=== PATIENT | female | born 2000 | race Caucasian/White ===

== ENCOUNTER 2024-05-26 15:02 | Observation (INO) | payer BC ==
[2024-05-26 16:08] VITALS: BP 107/58; PULSE 77; RESP 20
== END 2024-05-26 15:55 | disposition home or self-care (01) ==
LOC: OB 15:02
PROVIDERS: ADMIT Family Medicine; ATTEND Family Medicine
DX: Z34.02 Encounter for supervision of normal first pregnancy, second trimester (principal); Z3A.20 20 weeks gestation of pregnancy
CPT/HCPCS: G0378; G0379

== ENCOUNTER 2024-10-07 03:44 | Inpatient (IN) | payer BC ==
[2024-10-07 12:46] LABS: Absolute Neutrophil Ct (ANC) 7.18 x10^3/uL (1.56-6.13); BASOPHIL % 0.2 % (0.1-1.2); Basophil (Absolute #) 0.02 x10^3/uL (0.01-0.08); Eosinophil % 1.1 % (0.7-5.8); Hematocrit 33.8 % (34.1-44.9); Hemoglobin 11.8 g/dL (11.2-15.7); IMMATURE GRAN # 0.07 x10^3u/L (0.001-0.031); IMMATURE GRAN % 0.7 % (0.001-0.429); Lymphocyte (Absolute #) 1.49 x10^3/uL (1.18-3.74); Lymphocytes % 15.9 % (19.3-51.7); Mean Cell Volume 95.5 fL (79.4-94.8); Mean Corpuscular Hemoglobin 33.3 pg (25.6-32.2); Mean Corpuscular Hgb Concent. 34.9 g/dL (32.2-35.5); Mean Platelet Volume 10.3 fL (9.4-12.3); Monocyte (Absolute #) 0.53 x10^3/uL (0.24-0.86); Monocytes % 5.6 % (4.7-12.5); Neutrophil % 76.5 % (34.0-71.1); Platelet Count 235 x10^3/uL (182-369); Red Blood Count 3.54 x10^6/uL (3.93-5.22); Red Cell Distribution Width 12.1 % (11.7-14.4); White Blood Count 9.4 x10^3/uL (3.98-10.04)
[2024-10-07 13:28] LABS: Amphetamine,Urine NEGATIVE (NEGATIVE); Barbiturate,Urine NEGATIVE (NEGATIVE); Benzodiazepine,Urine NEGATIVE (NEGATIVE); Cocaine,Urine NEGATIVE (NEGATIVE); Methadone,Urine NEGATIVE (NEGATIVE); Opiate,Urine NEGATIVE (NEGATIVE); PCP,Urine NEGATIVE (NEGATIVE); THC,Urine NEGATIVE (NEGATIVE)
[2024-10-07 13:33] LABS: ABO TYPING A; Antibody Screen NEGATIVE (NEGATIVE); RH TYPING POSITIVE
[2024-10-07] MEDS ORDERED: Ephedrine Sulfate 50 MG/ML IV PRN (20:51)
[2024-10-07] MEDS ORDERED: BRETHINE 1 MG/ML SQ PRN (20:53)
[2024-10-07] MEDS ORDERED: PITOCIN 30 UNITS/ LR 500 ML 30 UNITS/500 ML PLAST..BAG IV SCH (21:00)
[2024-10-07] MEDS ORDERED: STADOL 2 MG IV PRN (21:51)
[2024-10-07] MEDS: Lactated Ringers 1,000 ML IV ONE (22:21)
[2024-10-07] MEDS: Lactated Ringers 1,000 ML IV SCH (22:23)
[2024-10-07] MEDS ORDERED: FENTANYL 2 MCG-BUPIV 0.125%-NS 250 ML Epidur 250 ML EPIDURAL ONE (22:44)
[2024-10-07] MEDS: FENTANYL 2 MCG-BUPIV 0.125%-NS 250 ML Epidur 250 ML EPIDURAL SCH (22:59)
[2024-10-08 00:25] LABS: Appearance Clear (Clear); Bacteria None Seen /HPF (None Seen); Bilirubin Negative (Negative); Blood Small (Negative); Epithelial Cells None Seen /HPF (None Seen); Glucose, Urine Negative (Negative); Hyaline Casts NONE SEEN /LPF (0-2); Ketones Negative (Negative); Leukocyte Esterase Negative (Negative); Nitrite Negative (Negative); Ph 7.5 (4.6-8.0); Protein,Urine Dip Negative (Negative); Specific Gravity <=1.005 (1.005-1.030); Urobilinogen 0.2 mg/dL (0.2); WBC 0-2 /HPF (0-5)
[2024-10-08] MEDS: PITOCIN 30 UNITS/ LR 500 ML 30 UNITS/500 ML PLAST..BAG IV SCH (04:06)
[2024-10-08] MEDS ORDERED: XYLOCAINE 1% HCL 20 ML MDV IJ PRN (05:00)
[2024-10-08] MEDS ORDERED: Mylicon 80MG PO PRN (05:21)
[2024-10-08] MEDS: LANSINOH 40 GM TOP PRN (06:06)
[2024-10-08] MEDS ORDERED: TUCKS TP ONE (06:06)
[2024-10-08] MEDS: Dermoplast Spray TP PRN (06:07)
[2024-10-08] MEDS: TUCKS TP PRN (06:11)
[2024-10-08] MEDS: MOTRIN 400 MG PO PRN (06:34)
[2024-10-08] MEDS: FERREX 150 PO SCH (11:21)
[2024-10-08] MEDS: Docusate Sodium 100 MG PO SCH (11:21)
[2024-10-08] MEDS: NON-FORMULARY ITEM PO ONE (12:42)
[2024-10-08 16:26] VITALS: RESP 18
[2024-10-08] MEDS: CORTISONE 1% CREAM TP PRN (18:08)
[2024-10-08] MEDS: TYLENOL EXTRA STRENGTH 500 MG PO PRN (18:09)
[2024-10-08 20:20] VITALS: O2SAT 98
[2024-10-09 04:23] LABS: Absolute Neutrophil Ct (ANC) 9.37 x10^3/uL (1.56-6.13); BASOPHIL % 0.3 % (0.1-1.2); Basophil (Absolute #) 0.04 x10^3/uL (0.01-0.08); Eosinophil % 1.7 % (0.7-5.8); Eosinophil (Absolute #) 0.21 x10^3/uL (0.04-0.36); Hematocrit 30.9 % (34.1-44.9); Hemoglobin 10.9 g/dL (11.2-15.7); IMMATURE GRAN # 0.07 x10^3u/L (0.001-0.031); IMMATURE GRAN % 0.6 % (0.001-0.429); Lymphocyte (Absolute #) 1.89 x10^3/uL (1.18-3.74); Lymphocytes % 15.5 % (19.3-51.7); Mean Cell Volume 97.2 fL (79.4-94.8); Mean Corpuscular Hemoglobin 34.3 pg (25.6-32.2); Mean Corpuscular Hgb Concent. 35.3 g/dL (32.2-35.5); Mean Platelet Volume 10.2 fL (9.4-12.3); Monocyte (Absolute #) 0.58 x10^3/uL (0.24-0.86); Monocytes % 4.8 % (4.7-12.5); Neutrophil % 77.1 % (34.0-71.1); Platelet Count 215 x10^3/uL (182-369); Red Blood Count 3.18 x10^6/uL (3.93-5.22); Red Cell Distribution Width 12.5 % (11.7-14.4); White Blood Count 12.2 x10^3/uL (3.98-10.04)
[2024-10-09 10:07] LABS: RPR Non Reactive (Non Reactive)
[2024-10-09] MEDS: M-M-R II Vaccine With Diluent SQ ONE (10:16)
--- NOTE | 2024-10-09 10:54 | PCM.NOTE ---
Date and Time: 10/09/24 1053 Subjective Assessment: ppd 1 sp pt resting in bed and doing well able to ambulate and tolerate diet vss afebrile abd; soft uterus; firm lochia; mild hgb; 10 a/p sp ppd 1 dc home tomorrow should fuin office in 3 wks Objective Data Vital Signs: Vital Signs - 24 hr Temp Pulse Resp BP Pulse Ox 10/09/24 08:00 97.5 F 63 18 107/50 10/09/24 02:00 97.5 F 68 18 93/62 98 10/08/24 20:18 97.5 F 68 18 111/59 98 10/08/24 20:00 97.5 F 68 18 111/59 98 10/08/24 15:15 97.9 F 77 18 103/58 97 Pain Assessment - Last Documented Pain Intensity [Lower Anterior 2 ] Pain Intensity 5 Pain Scale Used 0-10 Pain Scale Intake and Output: Intake & Output 10/06/24 10/07/24 10/08/24 10/09/24 10:59 11:59 11:59 11:59 Intake Total 5850 2000 Output Total 1200 Balance 4650 1999 Weight 58.967 kg Lab Results: Lab Results-Last 24 Hours 10/07/24 10/09/24 Range/Units 12:37 04:20 WBC 12.2 H (3.98-10.04) x10^3/uL RBC 3.18 L (3.93-5.22) x10^6/uL Hgb 10.9 L (11.2-15.7) g/dL Hct 30.9 L (34.1-44.9) % MCV 97.2 H (79.4-94.8) fL MCH 34.3 H (25.6-32.2) pg MCHC 35.3 (32.2-35.5) g/dL RDW 12.5 (11.7-14.4) % Plt Count 215 (182-369) x10^3/uL MPV 10.2 (9.4-12.3) fL Gran % 77.1 H (34.0-71.1) % Immature Gran % (Auto) 0.6 H (0.001-0.429) % Nucleat RBC Rel Count 0.0 (0.00-0.2) % Eos # (Auto) 0.21 (0.04-0.36) x10^3/uL Immature Gran # (Auto) 0.07 H (0.001-0.031) x10^3u/L Absolute Lymphs (auto) 1.89 (1.18-3.74) x10^3/uL Absolute Monos (auto) 0.58 (0.24-0.86) x10^3/uL Absolute Nucleated RBC 0.00 (0.00-0.012) x10^3u/L Lymphocytes % 15.5 L (19.3-51.7) % Monocytes % 4.8 (4.7-12.5) % Eosinophils % 1.7 (0.7-5.8) % Basophils % 0.3 (0.1-1.2) % Absolute Granulocytes 9.37 H (1.56-6.13) x10^3/uL Basophils # 0.04 (0.01-0.08) x10^3/uL RPR Non Reactive (Non Reactive) Assessment/Plan (1) Vaginal delivery Current Visit: Yes Status: Acute Code(s): O80 - ENCOUNTER FOR FULL-TERM UNCOMPLICATED DELIVERY
--- NOTE | 2024-10-09 10:57 | PCM.DS ---
Discharge Summary Date of Admission: 10/07/24 21:25 Admitting Physician: TITO BURT DO Consults: Consults on Case 10/07/24 20:51 Notify Anesthesia Provider PRN 10/08/24 05:21 Notify Physician ROUTINE Primary Care Provider: JUAN LORENZ Allergies Allergies No Known Drug Allergies Allergy (Unverified 09/12/24 17:00) Hospital Summary - Hospital Course Hospital Course: pt admitted for induction at 39 2/7 wks gestation on october 07 with cytotec and was given 2 doses of cytotec before she had srom and was subsequently placed on pitocin and delivered live baby boy without complication on october 08 at 0403. pt did have a midline tear 2nd degree repaired with 2-0 chromic suture and hemostasis obtained. during period did very well with stable hgb at 10 and at this time stable for discharge. all questions answered to her satisfaction and was advised to fu in office in 3 wks. - Vitals & Intake/Output Vital Signs: Vital Signs Temperature 97.5 F 10/09/24 08:00 Pulse Rate 63 10/09/24 08:00 Respiratory Rate 18 10/09/24 08:00 Blood Pressure 107/50 10/09/24 08:00 O2 Sat by Pulse Oximetry 98 10/09/24 02:00 Intake & Output: Intake & Output 10/06/24 10/07/24 10/08/24 10/09/24 10:59 11:59 11:59 11:59 Intake Total 5850 2000 Output Total 1200 Balance 4650 2000 Weight 58.967 kg - Lab Result Diagrams: 10/09/24 04:20 Lab Results-Last 24 Hrs: Lab Results-Last 24 Hours 10/07/24 10/09/24 Range/Units 12:37 04:20 WBC 12.2 H (3.98-10.04) x10^3/uL RBC 3.18 L (3.93-5.22) x10^6/uL Hgb 10.9 L (11.2-15.7) g/dL Hct 30.9 L (34.1-44.9) % MCV 97.2 H (79.4-94.8) fL MCH 34.3 H (25.6-32.2) pg MCHC 35.3 (32.2-35.5) g/dL RDW 12.5 (11.7-14.4) % Plt Count 215 (182-369) x10^3/uL MPV 10.2 (9.4-12.3) fL Gran % 77.1 H (34.0-71.1) % Immature Gran % (Auto) 0.6 H (0.001-0.429) % Nucleat RBC Rel Count 0.0 (0.00-0.2) % Eos # (Auto) 0.21 (0.04-0.36) x10^3/uL Immature Gran # (Auto) 0.07 H (0.001-0.031) x10^3u/L Absolute Lymphs (auto) 1.89 (1.18-3.74) x10^3/uL Absolute Monos (auto) 0.58 (0.24-0.86) x10^3/uL Absolute Nucleated RBC 0.00 (0.00-0.012) x10^3u/L Lymphocytes % 15.5 L (19.3-51.7) % Monocytes % 4.8 (4.7-12.5) % Eosinophils % 1.7 (0.7-5.8) % Basophils % 0.3 (0.1-1.2) % Absolute Granulocytes 9.37 H (1.56-6.13) x10^3/uL Basophils # 0.04 (0.01-0.08) x10^3/uL RPR Non Reactive (Non Reactive) Micro Results-Entire Visit: Microbiology 10/07/24 23:50 Urine Culture - Final Catherized NO GROWTH Final Diagnosis/Problem List - Final Discharge Diagnosis/Problem (1) Vaginal delivery Current Visit: Yes Status: Acute Code(s): O80 - ENCOUNTER FOR FULL-TERM UNCOMPLICATED DELIVERY - Discharge Disposition: Home, Self-Care Condition: Stable Prescriptions: No Action ,Calc.40/Iron/Folate 1 [Pnv-Select Tablet] 1 each PO DAILY Omeprazole Magnesium [Prilosec Otc] 20 mg PO DAILY Ferrous Sulfate 325 mg [Feosol 325 mg] 325 mg PO BID Follow up with: JUAN LORENZ NP [Primary Care Provider] - TITO BURT DO [ACTIVE STAFF] - 3 weeks
[2024-10-10 08:09] VITALS: BP 110/65; PULSE 83; TEMP 97.4
== END 2024-10-10 10:50 | disposition home or self-care (01) | DRG 807 ==
LOC: OB 11:51 → OBSVTOIN 21:25
PROVIDERS: ADMIT Obstetrics & Gynecology; ATTEND Obstetrics & Gynecology
PROC: 10E0XZZ Delivery of Products of Conception, External Approach (ICD-10-PCS; principal; 2024-10-08)
PROC: 0KQM0ZZ Repair Perineum Muscle, Open Approach (ICD-10-PCS; 2024-10-08)
DX: O70.1 Second degree perineal laceration during delivery (principal); Z37.0 Single live birth; O69.81X0 Labor and delivery complicated by cord around neck, without compression, not applicable or unspecified; Z3A.39 39 weeks gestation of pregnancy
CPT/HCPCS: 36415; 80307; 81001; 85025; 86592; 86850; 86900; 86901; 87086; 90707; J2590; A9270-GY